=== PATIENT | female | born 1980 | race Caucasian/White ===

== ENCOUNTER → 2017-05-09 | Outpatient (CLI) | payer OTHER | LOC: BMCIMAGING 08:54 | PROVIDERS: ATTEND Internal Medicine | DX: M41.05 Infantile idiopathic scoliosis, thoracolumbar region (principal) ==

== ENCOUNTER → 2017-07-21 | Outpatient (CLI) | payer OTHER | LOC: BMCIMAGING 13:03 | PROVIDERS: ATTEND Nurse Practitioner Adult Health | DX: R22.42 Localized swelling, mass and lump, left lower limb (principal); R59.0 Localized enlarged lymph nodes ==

== ENCOUNTER → 2017-08-29 | Outpatient (CLI) | payer OTHER ==
[~2017-08-29] MED LIST: GADOBUTROL 10 ML VIAL IVP ONE
== END ==
LOC: FIMAGING 06:40
PROVIDERS: ATTEND Internal Medicine
DX: G43.009 Migraine without aura, not intractable, without status migrainosus (principal)
CPT/HCPCS: A9585

== ENCOUNTER 2018-02-11 03:48 | Emergency (ER) | payer OTHER ==
[2018-02-11] MEDS ORDERED: NS 1,000 ML IV ONE (04:16)
[2018-02-11] MEDS ORDERED: KETOROLAC 15 MG/1 ML SDV IVP/IM ONE (04:16)
[2018-02-11] MEDS ORDERED: PROMETHAZINE HCL 25 MG/ML INJ IVP ONE (04:16)
[2018-02-11] MEDS ORDERED: METOCLOPRAMIDE 10 MG/2 ML VIAL IVP ONE (04:16)
--- NOTE | 2018-02-11 04:20 | EDPHY ---
H & P Stated Complaint: migraine Time Seen by Provider: 02/11/18 03:57 HPI/ROS: HPI The patient presents with headache which has been present for the last 2 days which started slowly and initially presented with decreased vision which lasted for about 90 min. The headache was right-sided, retro-orbital, throbbing, severe. She has had some relief after using sumatriptan IM, however the headache returns after this. She has taken Phenergan, Vicodin, Lunesta, however non have helped her headache. She was taken off of Topamax about 4-6 weeks ago and she wonders if this may be causing her headache. She is experiencing nausea without vomiting. She has had migraines since she was 15 years old, when her headaches are severe she has decreased vision REVIEW OF SYSTEMS 10 systems were reviewed and negative with the exception of the elements mentioned in the history of present illness. PMHx: History of migraine headaches, adrenal insufficiency Soc Hx: Nonsmoker PHYSICAL General Appearance: Alert, no distress Eyes: Pupils equal and round no pallor or injection ENT, Mouth: Mucous membranes moist Respiratory: There are no retractions, lungs are clear to auscultation Cardiovascular: Regular rate and rhythm Gastrointestinal: Abdomen is soft and non-tender, no masses, bowel sounds normal Neurological: A&O, cranial nerves 2-12 intact, 5/5 strength in upper and lower extremities symmetric Skin: Warm and dry, no rashes Musculoskeletal: Neck is supple non tender Extremities: symmetrical, full range of motion Psychiatric: Patient is oriented X 3, there is no agitation Source: Patient Exam Limitations: No limitations - Personal History LMP (Females 10-55): 1-7 Days Ago Current Tetanus/Diphtheria Vaccine: Yes Current Tetanus Diphtheria and Acellular Pertussis (TDAP): Yes Tetanus Vaccine Date: 09/20/15 - Medical/Surgical History Hx Asthma: No Hx Chronic Respiratory Disease: No Hx Diabetes: No Hx Cardiac Disease: No Hx Renal Disease: No Hx Cirrhosis: No Hx Alcoholism: No Hx HIV/AIDS: No Hx Splenectomy or Spleen Trauma: No Other PMH: migraines, had one today. thyroid nodule - Social History Smoking Status: Never smoked Constitutional: Initial Vital Signs Temperature (C) 36.4 C 02/11/18 03:52 Heart Rate 80 02/11/18 03:52 Respiratory Rate 18 02/11/18 03:52 Blood Pressure 115/82 H 02/11/18 03:52 O2 Sat (%) 98 02/11/18 03:52 O2 Delivery Mode Room Air Allergies/Adverse Reactions: gluten Allergy (Verified 12/13/14 12:38) Milk Containing Products [dairy] Allergy (Verified 12/13/14 12:38) Home Medications: Medication Instructions Recorded Hydrocodone/APAP 5/325 [[place] 1 - 2 tab PO Q4 PRN #0 tab 10/30/15 5/325 (*)] Hydrocortisone 02/11/18 Sertraline HCl 02/11/18 Medical Decision Making Differential Diagnosis: 37-year-old female with known history of migraine headaches presents with headache for the last 2 days associated with vision loss, photophobia, and nausea. Headache is unilateral and throbbing. Her neurologic examination currently is normal. I suspect recurrent migraine headache which could be related to not taking Topamax. Plan for IV fluids and medication for migraine, will reassess after this. Patient's headache improved significantly after receiving medication. She will be discharged home. I have instructed her to follow up with her neurologist. She is happy with this plan. - Data Points Medications Given: Discontinued Medications Diphenhydramine HCl (Benadryl Injection) 25 mg IVP EDNOW ONE Stop: 02/11/18 04:21 Last Admin: 02/11/18 04:23 Dose: 25 mg Hydromorphone HCl (Dilaudid) 0.5 mg IVP EDNOW ONE Stop: 02/11/18 05:11 Last Admin: 02/11/18 05:16 Dose: 0.5 mg Sodium Chloride (Ns) 1,000 mls @ 3,000 mls/hr IV EDNOW ONE Stop: 02/11/18 04:35 Last Admin: 02/11/18 04:22 Dose: 1,000 mls Ketorolac Tromethamine (Toradol) 15 mg IVP/IM EDNOW ONE Stop: 02/11/18 04:17 Last Admin: 02/11/18 04:25 Dose: 15 mg Metoclopramide HCl (Reglan Injection) 10 mg IVP EDNOW ONE Stop: 02/11/18 04:17 Last Admin: 02/11/18 04:27 Dose: 10 mg Departure - Departure Disposition: Home, Routine, Self-Care Clinical Impression: Migraine headache Qualifiers: Migraine type: unspecified Status migrainosus presence: without status migrainosus Intractability: not intractable Qualified Code(s): G43.909 - Migraine, unspecified, not intractable, without status migrainosus Condition: Good Instructions: Migraine Headache (ED) Additional Instructions: Please follow-up with your neurologist in the next few days for recheck of your headache. Please return to the emergency department if your worse in any way. Referrals: Yuli Cole MD [Primary Care Provider] - As per Instructions
[2018-02-11] MEDS ORDERED: HYDROmorphONE/DILAUDID 2 MG/ML INJ IVP ONE (05:10)
[2018-02-11 05:31] VITALS: BP 104/63
[2018-02-11] MEDS ORDERED: ONDANSETRON 4MG PREPACK#2 BTL TAKEHOME ONE (06:01)
== END 2018-02-11 06:07 | disposition home or self-care (01) ==
DX: G43.909 Migraine, unspecified, not intractable, without status migrainosus (principal)
CPT/HCPCS: 96374; J1170; J1200; J1885; J2765

== ENCOUNTER → 2018-03-12 | Outpatient (CLI) | payer OTHER | LOC: FIMAGING 16:23 | PROVIDERS: ATTEND Internal Medicine | DX: R10.84 Generalized abdominal pain (principal); R94.5 Abnormal results of liver function studies; E27.1 Primary adrenocortical insufficiency; R11.0 Nausea ==